=== PATIENT | female | born 2005 | race African-American/Black ===

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

== ENCOUNTER 2025-05-05 17:43 | Emergency (ER) | payer OTHER, SELFPAY ==
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
[2025-05-05 17:44] VITALS: BP 121/69; PULSE 94; RESP 16; TEMP 36.5; O2SAT 98
--- OUTSIDE RECORDS SUMMARY | 2025-05-05 17:45 | XMS_ITS | Clinical Summary ---
Author Organization [facility] Address [address] [place] [address] Care Team Providers Care Toe Sewer Name Role Phone Anibal Garcia MD Primary Care Provider [phone] Source Comments [facility],non-owned Affiliates and Associated Physician Practices is amultiple site organization consisting of ambulatory clinics and hospital sitesin [place], [place], [place] and [place]. This disclosure is being madepursuant to the Care Everywhere program and may not contain all information available regarding this patient. Last updated 18.[facility] Allergies Active Allergy Reactions Criticality Noted Date Comments Penicillins Unknown 12/03/2021 Medications * Be aware that medications may not be up to date on this document. Alwaysverify current medications with the patient. FLUoxetine (PROZAC) 10 MG capsule Take 10 mg by mouth at bedtime Active ondansetron (ZOFRAN) 4 MG tablet Take 1 (one) tablet by mouth every 8 hours as needed for Nausea/Vomit ing 10 tablet 12/04/2021 Active Active Problems Problem Noted Date Diagnosed Date Acute pyelonephritis 12/02/2021 Assessment & Plan (12/03/2021 4:55 AM CDT): Assessment: Kirstin Lemus is a 16 year old female with PMHx of depression/anxiety, with severe bilateral flank pain, fever, chills, and vomiting, concerning for pyelonephritis as evidenced by UA is consistent with a urinary tract infection and CT with prelim read of right-sided pyelonephritis. Minimal blood on UA, and pain is not colicky, making kidney stone less likely. Of note group A streptococcal infection and appendicitis can mimic UTIs with fever, abdominal pain and pyuria but dirty UA and CT showing normal appendix make these other diagnoses less likely. Most common pathogens for UTIs in children include E coli, Proteus, enterobacter, citrobacter, Staph saprophyticus, and, since patient is older, also include enterococcus, Klebsiella, and pseudomonas. Monitor for improvement on IV antibiotics and if not improving as expected consider imaging as abscess is a possible complication of pyelonephritis. Patient requires admission for IV antibiotics and hydration. Plan: - Admit to [place] Team, Dr. Quinones - Rocephin 1g q24hr (first dose given 1045 on 12/02) - PRN Tylenol 650mg q4 for mild pain; PRNToradol 30mg q6 for moderate to severe pain - If pain poorly controlled with toradol, can consider spot dosing morphine - Zofran q8 PRN for nausea/vomiting - Maintenance fluids with D5 NS 125ml/hr - F/u formal CT read from radiology - vitals q8hr - strict I/Os - CR monitors Nonspecific skin eruption 08/13/2011 Overview (08/13/2011): onset 2011, generalized non-pruritic, papular eruption failed multiple topical and oral medications; consider scabies vs. viral exanthem complicated by contact dermatitis; PLEVA less likely Family History Medical History Relation Name Comments Eczema Father Strep throat Maternal Grandmother Diabetes Mother Nephrolithiasis Mother Sinusitis Mother Skin problem Mother staph infection Skin problem Paternal Grandmother staph i nfection Eczema Sister Skin problem Sister staph infection Relation Name Status Comments Father Maternal Grandmother Mother Paternal Grandmother Sister Social History Tobacco Use Types Packs/Day Years Used Date Smoking Tobacco: Passive Smo ke Exposure - Never Smoker Smokeless Tobacco: Never Alcohol Use Standard Drinks/Week Comments Never 0 (1 standard drink = 0.6 oz pur e alcohol) Comments No Sex and Gender Information Value Date Recorded Sex Assigned at Not on file Legal 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 Gender Identity Not on file Sexual Orientation Not on file Last Filed Vital Signs Vital Sign Reading Time Taken Comments Blood Pressure 111/65 12/04/2021 11:30 AM CDT Pulse 64 12/04/2021 11:30 AM CDT Temperature 36.7 C (98 F) 12/04/2021 11:30 AM CDT Respiratory Rate 16 12/04/2021 11:3 0 AM CDT Oxygen Saturation 99% 12/04/2021 11: 30 AM CDT Inhaled Oxygen Concentration - - Weight 62.9 kg (138 lb 10.7 oz) 12/03/2021 1:47 AM CDT Height 165 cm (5' 4.96) 12/03/2021 1:47 AM CDT Body Mass Index 23.1 12/03/2021 1:47 AM CDT Body Mass Index Percentile 74.48% 12/03/2021 1:4 7 AM CDT Growth Chart: CDC (Girls, 2- 20 Years) Plan of Treatment Health Maintenance Due Date Last Done Comments HIV SCREENING 2020 HPV VACCINE (1 - 3-dose series) 2020 MENINGOCOCCAL (Group B) VACC INE SHARED DECISION-MAKING (1 of 2 - Standard) 2021 CHLAMYDIA/GONORRHEA SCREENING 10/01/2022 10/01/2021 HEPATITIS C SCREENING 05/06/2023 DTAP/TDAP/TD VACCINES (1 - Tdap) 2024 HEPATITIS B VACCINE (1 of 3 - 19+ 3-dose series) 2024 DEPRESSION SCREENING 05/16/2024 COVID-19 VACCINE (1 - 2024-2 6 season) 2025 INFLUENZA VACCINE (#1) 2025 ZOSTER VACCINE (1 of 2) 2055 HIB VACCINE Aged Out No longer eligi ble based on patient's age to complete this topic MENINGOCOCCAL GROUPS A/C/Y/W VACCINE Aged Out No longer eligible b ased on patient's age to complete this topic PNEUMOCOCCAL VACCINE Aged Out No long er eligible based on patient's age to complete this topic Insurance [facility] Advance Directives * Full Code (Latest Code Status on File) Date Activated Date Inactivated Comments 12/03/2021 1:37 AM 12/04/2021 5:48 PM Care Teams Toe Sewer Relationship Specialty Start Date End Date Anibal Garcia MD [address] [place] [address] PCP - General 06/15/11
[2025-05-05 18:49] LABS: BEDSIDEPREGUCG Negative (Negative)
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
--- NOTE | 2025-05-05 19:20 | PC.NURSE ---
Report received from TRICE Colin. Assumed care of patient at this time.
[2025-05-05 19:22] LABS: BEDSIDEPREGUCG Negative (Negative)
[2025-05-05 19:42] LABS: Hematocrit 36.4 % (37.0-47.0); Hemoglobin 12.1 g/dL (12.0-15.0); Immature Granulocyte Percent A 0.3 % (0-0.5); Lymphocytes Absolute Auto 2.05 K/mm3 (0.9-3.2); Mean Corpuscular HGB Conc 33.2 g/dl (32-36); Mean Corpuscular Hemoglobin 31.9 pg (26-34); Mean Corpuscular Volume 96.0 fl (80-100); Nucleated Red Blood Cells Absolute Auto 0.000 K/mm3 (0.0-0.012); Nucleated Red Blood Cells Perc 0.0 % (0.0-0.2); Platelet Count Result 258 k/mm3 (150-375); Red Blood Count 3.79 M/mm3 (4.2-5.4); White Blood Count 9.3 K/mm3 (4.5-10.0)
[2025-05-05 19:59] LABS: Alanine Aminotransferase 18 U/L (6-35); Albumin Level 4.7 g/dL (3.7-5.6); Alkaline Phosphatase 101 U/L (45-116); Anion Gap 9 mmol/L (4-12); Aspartate Amino Transferase 25 U/L (14-36); Bilirubin,Total 0.3 mg/dL (0.2-1.3); Blood Urea Nitrogen 11 mg/dL (8-21); Calcium 9.1 mg/dL (8.9-10.7); Carbon Dioxide 22 mmol/L (22-30); Chloride 107 mmol/L (98-107); Estimated CRCL calculation 107 ml/min; Estimated Glomerular Filt Rate > 60; Glucose 95 mg/dL (65-110); Potassium 3.8 mmol/L (3.4-5.0); Sodium 138 mmol/L (134-143); Total Protein 7.9 g/dL (6.3-8.6)
[2025-05-05 21:10] VITALS: BP 120/73; PULSE 77; RESP 16; TEMP 36.4; O2SAT 98
== END 2025-05-05 21:35 | disposition home or self-care (01) ==
PROVIDERS: Emergency Provider Physician Assistant
DX: S16.1XXA Strain of muscle, fascia and tendon at neck level, initial encounter (principal); S30.11XA Contusion of abdominal wall, initial encounter; V89.2XXA Person injured in unspecified motor-vehicle accident, traffic, initial encounter
CPT/HCPCS: 36415; 70450; 71260; 72125; 74177; 80053; 81025; 85025; 99284; Q9967